=== PATIENT | male | born 1965 | race Caucasian/White ===

== ENCOUNTER → 2020-02-09 | Outpatient (CLI) | payer OTHER ==
--- NOTE | 2020-02-09 12:34 | FL ---
EXAMINATION TYPE: FL barium swallow DATE OF EXAM: 02/09/2020 COMPARISON: None HISTORY: Dysphasia, cough TECHNIQUE: A double air contrast UGI study is performed. FINDINGS: Esophagus dilates to normal caliber has normal contour to the gastroesophageal junction. Gastroesopha geal junction opens to normal caliber. Some mild presbyesophagus is evident with tertiary contraction s present. No suspicious intraluminal or extramural defect is evident. There is complete stripping th e esophageal bolus in the horizontal drinking position. No reflux was observed during the exam. Fluoroscopy time: 48 seconds Images: 14 IMPRESSIONS: 1. Mild presbyesophagus.
== END | disposition home or self-care (01) ==
LOC: RADUSWWP 09:37
PROVIDERS: ATTEND Otolaryngology
DX: K22.8 Other specified diseases of esophagus (principal)
CPT/HCPCS: 74220